=== PATIENT | male | born 1945 | race Caucasian/White ===

== ENCOUNTER → 2016-07-03 | Outpatient (CLI) | payer OTHER ==
[~2016-07-03] MED LIST: ARICEPT5 MG; COMBIVENT INH14.7 GM; MOBIC15 MG; PRAVACHOL80 MG; ZESTORETIC 20-1 EAC1
== END | disposition home or self-care (01) ==
LOC: CDC 10:06
DX: Z01.810 Encounter for preprocedural cardiovascular examination (principal)
CPT/HCPCS: 93000

== ENCOUNTER 2016-07-10 10:42 | Inpatient (IN) | payer OTHER ==
[~2016-07-10] VITALS: Ht 162.6 cm; Wt 99.8 kg
[~2016-07-10 10:42] MED LIST changes: +ARICEPT10 MG PO; +CLARITIN,ALAVAR10 MG PO; +COMBIVENT RESPIM4 GM IH; +COZAAR100 MG PO; +DICLOFENAC SOD100 G1 TP; +HYDROCHLOROTHIA25 MG PO; +LO-DOSE ASPIRIN81 M2 PO; +NORVASC5 MG PO; +OMEGA-3 FLAXS1000 MG PO; -PRAVACHOL80 MG; +PRAVACHOL80 MG PO; +SYMBICORT60 INHALAT IH; +TYLENOL ARTHRI650 MG PO; +VITAMIN B-122500 MCG SL
[2016-07-10 11:31] VITALS: BP 146/71
[2016-07-10] MEDS ORDERED: SEPTRA 80-4001 EACH PO (15:25)
[2016-07-10] MEDS ORDERED: PERCOCET 5/31 TABLET PO (15:25)
[2016-07-10 17:54] LABS: HEMATOCRIT 34.2 % (38.0-50.0)
[2016-07-10 18:56] VITALS: BP 145/80
[2016-07-10 19:45] VITALS: BP 147/75
[2016-07-10 23:27] VITALS: BP 140/70
[2016-07-11 03:44] VITALS: BP 144/68
[2016-07-11 07:20] VITALS: BP 145/65
[2016-07-11 09:07] LABS: HEMATOCRIT 33.3 % (38.0-50.0)
[2016-07-11 09:23] LABS: ANION GAP 10 MEQ/L (2-14); CHLORIDE 103 MEQ/L (99-109); SAMPLE HEMOLYSIS CHECK 1; SAMPLE ICTERIC CHECK 0; SAMPLE LIPEMIA CHECK 0; SODIUM 138 MEQ/L (136-147)
[2016-07-11 09:28] LABS: GFR ESTIMATE (CALCULATED) > 59 mL/min/; GLUCOSE 180 mg/dL (70-99); UREA NITROGEN (BUN) 14 mg/dL (9-23)
[2016-07-11 11:31] VITALS: BP 160/69
[2016-07-11 15:15] VITALS: BP 147/65
[2016-07-11 20:06] VITALS: BP 184/75
[2016-07-11 23:22] VITALS: BP 134/62
[2016-07-12 08:51] VITALS: BP 158/78
== END 2016-07-12 15:11 | disposition home or self-care (01) | DRG 708 ==
LOC: 2SOUTH 10:42 → 5EAST 10:42 → 2SOUTH 10:46 → 5EAST 18:49
PROVIDERS: Urology
DX: C61 Malignant neoplasm of prostate (principal); R97.20 Elevated prostate specific antigen [PSA]; E78.00 Pure hypercholesterolemia, unspecified; I10 Essential (primary) hypertension; N40.1 Benign prostatic hyperplasia with lower urinary tract symptoms; R35.1 Nocturia; Z87.891 Personal history of nicotine dependence; Z72.89 Other problems related to lifestyle; E66.3 Overweight; Z68.37 Body mass index [BMI] 37.0-37.9, adult
CPT/HCPCS: 80048; 85014; 85018; 88305; 88309; 94640; 94640 76; 94799; 99202; J0690; J1170; J1885; J2175; J2250; J2405; J2710; J3010; J7050; J7120; P9045

== ENCOUNTER → 2016-10-28 | Outpatient (CLI) | payer OTHER ==
[~2016-10-28] MED LIST changes: +PERCOCET 5/31 TABLET PO; +SEPTRA 80-4001 EACH PO
== END | disposition home or self-care (01) ==
LOC: NUC 09:28
DX: M89.8X8 Other specified disorders of bone, other site (principal); R93.7 Abnormal findings on diagnostic imaging of other parts of musculoskeletal system; C61 Malignant neoplasm of prostate; Z90.79 Acquired absence of other genital organ(s)
CPT/HCPCS: 78306; A9503

== ENCOUNTER → 2016-11-15 | Outpatient (CLI) | payer OTHER | END | disposition home or self-care (01) | LOC: CDC 10:12 | DX: R94.31 Abnormal electrocardiogram [ECG] [EKG] (principal) | CPT/HCPCS: 93000 ==